=== PATIENT | male | born 1990 | race Caucasian/White ===

== ENCOUNTER 2021-01-09 05:34 | Day surgery (SDC) | payer SELFPAY ==
[~2021-01-09] VITALS: Ht 175.3 cm; Wt 113.4 kg
[2021-01-09] VITALS (7 sets, daily range): BP systolic 101–119; BP diastolic 62–67
[~2021-01-09 05:34] MED LIST: NO HOME MEDS; cefazolin/dext.iso 2gm/50ml IV ONE; famotidine 20mg tablet PO ONE; ringers solution, lacted 1,000 ML IV SCH
[2021-01-09] MEDS ORDERED: morphine 2 MG/ML inj. syringe IV PRN (08:05)
[2021-01-09] MEDS ORDERED: acetaminophen 1,000mg/100ml IV 100 ML IV PRN (08:05)
[2021-01-09] MEDS ORDERED: ringers solution, lacted 1,000 ML IV SCH (08:05)
[2021-01-09] MEDS ORDERED: ondansetron/PF 4mg/2ml inj IV PRN (08:05)
[2021-01-09] MEDS ORDERED: hydrALAZINE 20mg/ml inj. IV PRN (08:05)
[2021-01-09] MEDS ORDERED: proCHLORperazine 10 MG/2 ml inj IV PRN (08:05)
[2021-01-09] MEDS ORDERED: labetalol 20mg/4ml (5mg/ml) syringe IV PRN (08:05)
[2021-01-09] MEDS ORDERED: morphine 4 MG/ML inj SYRINge IV PRN (08:05)
[2021-01-09] MEDS ORDERED: meperidine/PF 25mg/ml syringe IV PRN ×3 (08:05)
[2021-01-09] MEDS ORDERED: BUPIVAcaine/PF 2.5mg/ml (0.25%) 10ml vial ONE (08:37)
[2021-01-09] MEDS ORDERED: midazolam 1 mg/ML 2ml injection ONE (08:46)
[2021-01-09] MEDS ORDERED: fentaNYL/PF 50MCG/1 ML 2ML syringe ONE (08:46)
[2021-01-09] MEDS ORDERED: propofol inj 20 ML IV ONE (08:54)
[2021-01-09] MEDS ORDERED: LIDOcaine 0.5% (5mg/ml) 50ml vial ONE (08:55)
--- NOTE | 2021-01-09 09:20 | NUR ---
Received from OR via , accompanied by Anesthesiologist DR MELCHOR and report given by Anesthesiolgist. AWAKENS TO VOICE. VITALS STABLE. DRESSING DI. KB PAIN. FINGERS WARM AND PINK.
--- NOTE | 2021-01-09 10:20 | NUR ---
AWAKE AND ORIENTED. VITALS STABLE. DRESSING DI. KB PAIN. HOME WITH HIS AT THIS TIME.
== END 2021-01-09 10:20 | disposition home or self-care (01) ==
LOC: PAS 05:34
PROVIDERS: ATTEND Orthopaedic Surgery Hand Surgery
DX: S62.611A Displaced fracture of proximal phalanx of left index finger, initial encounter for closed fracture (principal); E66.9 Obesity, unspecified; Z68.36 Body mass index [BMI] 36.0-36.9, adult; Z98.890 Other specified postprocedural states; Z87.891 Personal history of nicotine dependence; Z20.822 Contact with and (suspected) exposure to COVID-19; Z79.899 Other long term (current) drug therapy; Z72.89 Other problems related to lifestyle; X58.XXXA Exposure to other specified factors, initial encounter; Y93.9 Activity, unspecified; Y92.89 Other specified places as the place of occurrence of the external cause; Y99.8 Other external cause status
CPT/HCPCS: 26727; 36415; 82948; A6222; C1713; J2001; J2250; J2704; J3010; J3490; J7120; U0003; U0005; Z7506; Z7512; A4215; A4618; A6449; A7000

== ENCOUNTER 2021-07-16 18:43 | Emergency (ER) | payer OTHER ==
[~2021-07-16] VITALS: Ht 175.3 cm; Wt 113.6 kg
[~2021-07-16 18:43] MED LIST changes: -cefazolin/dext.iso 2gm/50ml IV ONE; -famotidine 20mg tablet PO ONE; -ringers solution, lacted 1,000 ML IV SCH
[2021-07-16 18:53] VITALS: BP 147/89
[2021-07-16] MEDS ORDERED: DOXYCYCLINE 100MG CAPSULE PO STA (20:13)
[2021-07-16] MEDS ORDERED: CefTRIAXone 1000mg IM Kit (w/lidocaine diluent) IM ONE (20:15)
[2021-07-16] MEDS ORDERED: DOXY-1 PO (20:19)
== END 2021-07-16 20:51 | disposition home or self-care (01) ==
LOC: ER 18:44
DX: N45.1 Epididymitis (principal); N50.89 Other specified disorders of the male genital organs; Z79.2 Long term (current) use of antibiotics
CPT/HCPCS: 76870; 93976; 96372; 99284; J0696